=== PATIENT | male | born 1985 | race Caucasian/White ===

== ENCOUNTER 2022-06-30 09:27 | Emergency (ER) | payer OTHER ==
[~2022-06-30] VITALS: Ht 172.7 cm; Wt 90.7 kg
[2022-06-30] MEDS ORDERED: LIDOCAINE 5% (LIDODERM) PATCH TD ONE (11:45)
[2022-06-30] MEDS ORDERED: METH-1164 PO (11:46)
[2022-06-30 12:02] VITALS: BP 133/90
== END 2022-06-30 12:04 | disposition home or self-care (01) ==
LOC: M ED 09:27
DX: S46.212A Strain of muscle, fascia and tendon of other parts of biceps, left arm, initial encounter (principal); Y93.23 Activity, snow (alpine) (downhill) skiing, snowboarding, sledding, tobogganing and snow tubing

== ENCOUNTER → 2022-09-29 | Outpatient (CLI) | payer OTHER ==
[~2022-09-29] MED LIST: METH-1164 PO
== END ==
LOC: M WHC 10:58
PROVIDERS: ATTEND Urology
DX: N20.0 Calculus of kidney (principal)

== ENCOUNTER → 2023-01-17 | Outpatient (REF) | payer OTHER | LOC: M LABSMT 07:58 | PROVIDERS: ATTEND Urology | DX: Z30.2 Encounter for sterilization (principal) | CPT/HCPCS: 55250; 88302; J0665 ==

== ENCOUNTER → 2023-06-26 | Outpatient (REF) | payer OTHER ==
[2023-06-26 16:18] LABS: SEMEN APPEARANCE OPAQUE (OPAQUE)
[2023-06-26 16:19] LABS: SEMEN VISCOSITY LIQUID (LIQUID); SEMEN VOLUME 4.8 ml (2.0-5.0); WBC CONCENTRATION <=1 M/ml (<=1 M/ml)
== END ==
LOC: M SMT 15:42
PROVIDERS: ATTEND Urology
DX: Z30.2 Encounter for sterilization (principal)